=== PATIENT | female | born 1990 | race Caucasian/White ===

== ENCOUNTER 2018-08-31 10:28 | Inpatient (IN) | payer BC ==
[2018-08-31] MEDS ORDERED: CARBOPROST TROMETHAMINE 250 MCG/ML 1 ML AMP IM PRN (11:28)
[2018-08-31] MEDS ORDERED: OXYTOCIN 10 UNIT/ML 1 ML VIAL IM PRN (11:28)
[2018-08-31] MEDS ORDERED: LIDOCAINE 0.5% (PF) 5 MG/ML (50 ML SDV) SQ PRN (11:28)
[2018-08-31] MEDS ORDERED: TERBUTALINE 1 MG/ML VIAL SQ PRN (11:28)
[2018-08-31] MEDS ORDERED: METHYLERGONOVINE 0.2 MG/ML 1 ML AMP IM PRN (11:28)
[2018-08-31] MEDS ORDERED: BUTORPHANOL 1 MG/ML 1 ML VIAL IV PRN (11:30)
--- NOTE | 2018-08-31 11:35 | P.HPOB ---
History of Present Illness H&P Date: 08/31/18 Chief Complaint: 39-3/7 weeks, early labor The patient is a 27-year-old 3 para 1011 admitted at 39-3/7 weeks as established by last menstrual period and confirmed by 8 week ultrasound. She is admitted with documented cervical change and regular contractions. She was scheduled for induction of labor tomorrow for social circumstances. Her has been uncomplicated. She does carry a history of herpes for which she has been on prophylaxis with no lesions apparent. She also expressed the desire for tubal ligation which will likely take place at her 6 week visit unless section becomes necessary. Group B strep status is negative. On admission, all signs are reassuring. Obstetrical history: 3 para 1011 with 1 term vaginal delivery without complications and one early miscarriage not requiring D&C. Current statistics are listed in history present illness. EDC of 09/04/2018 was established by last menstrual period and confirmed by 8 week ultrasound. Laboratory workup demonstrates a blood type of A+ with a negative antibody screen. Rubella status is immune. The remainder of the laboratory workup was within normal limits. One hour Glucola was normal and group B strep status is negative. Gynecologic history: Unremarkable with no history of any infections to include STDs aside from the history of herpes for which she has been prophylaxed. There are no lesions at this time. Review of Systems Review of systems is confined to history of present illness. Past Medical History History of Any Multi-Drug Resistant Organisms: None Reported Smoking Status: Never smoker Medications and Allergies Home Medications Medication Instructions Recorded Confirmed Type Acyclovir 400 mg PO BID 08/31/18 08/31/18 History Pnv No.95/Ferrous Fum/Folic AC 1 each PO DAILY 08/31/18 08/31/18 History [ Multivitamin Tablet] Allergies Allergy/AdvReac Type Severity Reaction Status Date / Time No Known Allergies Allergy Verified 08/31/18 10:47 Exam Intake and Output 08/30/18 08/31/18 08/31/18 22:59 06:59 14:59 Other: Weight 86.183 kg In general, this is a well-developed well-nourished white female in no acute distress. Her heart has a regular rhythm and rate without murmur. Her lungs are clear to auscultation bilaterally in all suero. Her abdomen is gravid, nondistended, has normal active bowel sounds, soft, nontender, and without any palpable masses aside from uterine fundus. Her extremities are without any cyanosis, clubbing, or edema and are nontender to palpation bilaterally. Digital cervical examination on straights her cervix to be 3 cm dilated, 80% effaced, the vertex in presentation at -2 station. Artificial rupture of membranes is carried out demonstrating clear fluid. Assessment and Plan (1) Active labor at term Current Visit: Yes Status: Acute Code(s): MJD7298 - SNOMED Code(s): 78274816 Plan: The patient is admitted for active management of labor. Should there be no symptoms concerning post form remover the next 1-2 hours, Pitocin augmentation will be added. She will have close maternal and surveillance and expectant management will be practiced. She is a good candidate for either IV or epidural analgesia, whichever she may choose.
[2018-08-31 11:44] VITALS: BMI 33.6
[2018-08-31 12:07] LABS: Basophils % (A) 0 %; Eosinophils # (A) 0.1 k/uL (0-0.7); Eosinophils % (A) 1 %; HCT 39.6 % (34.0-46.0); HGB 13.3 gm/dL (11.4-16.0); Lymphocytes # (A) 1.6 k/uL (1.0-4.8); Lymphocytes % (A) 16 %; MCH 31.1 pg (25.0-35.0); MCHC 33.7 g/dL (31.0-37.0); MCV 92.4 fL (80.0-100.0); Mean Platelet Volume 6.8; Monocytes # (A) 0.5 k/uL (0-1.0); Monocytes % (A) 5 %; Neutrophils # (A) 7.8 k/uL (1.3-7.7); Neutrophils % (A) 77 %; Platelet Count 276 k/uL (150-450); RBC 4.29 m/uL (3.80-5.40); RDW 13.2 % (11.5-15.5); WBC 10.2 k/uL (3.8-10.6)
[2018-08-31] MEDS: LACTATED RINGERS 1,000 ML IV SCH ×2 (12:50→14:01)
[2018-08-31] MEDS ORDERED: OXYTOCIN 30 UNITS/500 ML NS 30 UNIT in SALINE 1 500ML.BAG IV SCH (13:00)
[2018-08-31] MEDS ORDERED: fentaNYL (PF) 50 MCG/ML 5 ML AMP ONE (14:12)
[2018-08-31] MEDS ORDERED: ROPIVACAINE 5MG/ML 20ML VIAL ONE (14:12)
[2018-08-31] MEDS ORDERED: SODIUM CHLORIDE 0.9% 100 ML BAG ONE (14:12)
[2018-08-31] MEDS: OXYTOCIN 20 UNITS/1000 ML NS 1,000 ML IV SCH ×2 (17:22→18:52)
[2018-08-31] MEDS ORDERED: LANOLIN CREAM 5 GM TUBE TOPICAL PRN (17:34)
[2018-08-31] MEDS ORDERED: WITCH HAZEL 1 EACH MED..PAD TOPICAL PRN (17:34)
[2018-08-31] MEDS ORDERED: diphenhydrAMINE 25 MG CAP PO PRN (17:34)
[2018-08-31] MEDS ORDERED: HYDROCORTISONE 2.5% RECTAL CREAM 30 GM TUBE RECTAL PRN (17:34)
[2018-08-31] MEDS ORDERED: ZOLPIDEM 5 MG TAB PO PRN (17:34)
[2018-08-31] MEDS ORDERED: diphenhydrAMINE 50 MG CAP PO PRN (17:34)
[2018-08-31] MEDS ORDERED: diphenhydrAMINE 50 MG/ML 1 ML VIAL IVP PRN ×2 (17:34)
[2018-08-31] MEDS ORDERED: BENZOCAINE/MENTHOL SPRAY 1 GM/SPRAY AEROSOL TOPICAL PRN (17:34)
[2018-08-31] MEDS ORDERED: ACETAMINOPHEN TAB 325 MG TAB PO PRN (17:34)
[2018-08-31] MEDS ORDERED: HYDROcodone/APAP 7.5-325MG 1 EACH TAB PO PRN (17:34)
[2018-08-31] MEDS ORDERED: IBUPROFEN 600 MG TAB PO PRN (17:34)
[2018-08-31] MEDS ORDERED: SIMETHICONE 80 MG CHEWABLE PO PRN (17:34)
[2018-08-31] MEDS ORDERED: HYDROcodone/APAP 5-325MG 1 EACH TAB PO PRN (17:34)
--- NOTE | 2018-08-31 17:37 | P.PROBDLV ---
Vaginal Delivery Note - . Vaginal Delivery Note: The patient is a 27-year-old 3 para 1011 admitted at 39-3/7 weeks by good dating parameters perches admitted in early labor with all signs reassuring. She had been scheduled for elective induction tomorrow morning but presented in labor as noted above. On labor and delivery, she had artificial rupture of membranes carried out demonstrating clear fluid. She had an epidural catheter placed for analgesia and ultimately had Pitocin augmentation started as well. She then made fairly rapid progress through the active phase of labor to complete after which time she labored down for a period of time she had little sensation from her epidural which was turned down as well. She then ultimately pushed over the course of approximately 20 minutes to a normal spontaneous vaginal delivery of a viable 8 lbs. 1 oz. baby girl with Apgars of 8 at 1 minute and 9 at 5 minutes delivered in the right occiput anterior position. The placenta was delivered spontaneously, intact, and grossly normal although there was some organized clot adherent to the margin of the placenta as well as one cotyledon suggesting the possibility of a marginal placental abruption. There was a grossly normal three-vessel cord inserted approximate 4 cm from the margin of the placental disc. There were no lacerations of the perineum, vagina, or cervix. Estimated blood loss for the case was approximately 200 mL. There were no complications. All sponge, instrument, and needle counts were correct. Both mother and are resting comfortably in recovery.
[2018-08-31] MEDS: SENNOSIDES-DOCUSATE SODIUM 1 EACH TAB PO SCH (22:04)
[2018-09-01] MEDS: SENNOSIDES-DOCUSATE SODIUM 1 EACH TAB PO SCH (08:03)
[2018-09-01 08:51] VITALS: RESP 18
--- NOTE | 2018-09-01 09:56 | P.DS ---
Providers Date of admission: 08/31/18 10:59 Expected date of discharge: 09/01/18 Attending physician: Yousuf Huang Primary care physician: Stated None - Discharge Diagnosis(es) (1) Active labor at term Current Visit: Yes Status: Acute (2) Normal spontaneous vaginal delivery Current Visit: Yes Status: Acute Hospital Course: The patient is a 27-year-old 3 para 1011 admitted at 39-3/7 weeks by good dating parameters. She is admitted in early labor with all signs reassuring. Her was uncomplicated and group B strep status was negative. On labor and delivery, she had artificial rupture of membranes carried out for clear fluid. She had an epidural catheter placed for analgesia. Ultimately, she did require Pitocin augmentation progressed rapidly after that to complete. She pushed to a normal spontaneous vaginal delivery of a viable 8 lbs. 1 oz. baby girl with Apgars of 8 at 1 minute and 9 at 5 minutes. Her course was unremarkable with vital signs remained stable and her temperature was afebrile throughout. She was deemed stable for discharge on day #1 was discharged home to follow-up in the office in 6 weeks' time routinely. Discharge instructions included calling for any significantly increased bleeding or foul-smelling lochia, significantly increased fever abdominal pain, perineal complaints, breast complaints, or anything else that concerned her. She was additionally instructed to have nothing in the vagina for at least 6 weeks time to include intercourse. She understood her instructions and agrees to follow up as noted above. Discharge medications included continued vitamins as she has opted to breast-feed as well as [id number] analgesic pain medications as needed. Maternal blood type is A+ and rubella status is immune. Procedures: #1. Artificial rupture of membranes #2. Epidural analgesia #3. Pitocin augmentation #4. Normal spontaneous vaginal delivery Patient Condition at Discharge: Good Plan - Discharge Summary New Discharge Prescriptions: No Action Acyclovir 400 mg PO BID Pnv No.95/Ferrous Fum/Folic AC [ Multivitamin Tablet] 1 each PO DAILY Discharge Medication List Acyclovir 400 mg PO BID 08/31/18 [History] Pnv No.95/Ferrous Fum/Folic AC [ Multivitamin Tablet] 1 each PO DAILY 08/31/18 [History] Follow up Appointment(s)/Referral(s): Yousuf Huang MD [STAFF PHYSICIAN] - 6 Weeks Discharge Disposition: HOME SELF-CARE
[2018-09-01 18:04] VITALS: BP 121/73; PULSE 78; TEMP 98.3
== END 2018-09-01 18:00 | disposition home or self-care (01) | DRG 807 ==
LOC: FBPOP 10:28 → 4FBP 10:59
PROVIDERS: ADMIT Obstetrics & Gynecology; ATTEND Obstetrics & Gynecology
PROC: 10E0XZZ Delivery of Products of Conception, External Approach (ICD-10-PCS; principal; 2018-08-31)
PROC: 00HU33Z Insertion of Infusion Device into Spinal Canal, Percutaneous Approach (ICD-10-PCS; 2018-08-31)
PROC: 3E0R3BZ Introduction of Anesthetic Agent into Spinal Canal, Percutaneous Approach (ICD-10-PCS; 2018-08-31)
DX: O99.834 Other infection carrier state complicating childbirth (principal); Z37.0 Single live birth; Z3A.39 39 weeks gestation of pregnancy; Z79.899 Other long term (current) drug therapy
CPT/HCPCS: 59025; 84112; 85025; 86850; 86900; 86901; 99213

== ENCOUNTER → 2019-05-31 | Outpatient (CLI) | payer BC ==
[2019-05-31 11:24] LABS: Basophils # (A) 0.1 k/uL (0-0.2); Basophils % (A) 2 %; Eosinophils # (A) 0.1 k/uL (0-0.7); Eosinophils % (A) 2 %; HCT 38.9 % (34.0-46.0); HGB 12.8 gm/dL (11.4-16.0); Lymphocytes # (A) 1.9 k/uL (1.0-4.8); Lymphocytes % (A) 39 %; MCH 29.8 pg (25.0-35.0); MCHC 32.9 g/dL (31.0-37.0); MCV 90.7 fL (80.0-100.0); Mean Platelet Volume 7.3; Monocytes # (A) 0.3 k/uL (0-1.0); Monocytes % (A) 6 %; Neutrophils # (A) 2.3 k/uL (1.3-7.7); Neutrophils % (A) 48 %; Platelet Count 225 k/uL (150-450); RBC 4.29 m/uL (3.80-5.40); RDW 12.4 % (11.5-15.5); WBC 4.8 k/uL (3.8-10.6)
== END | disposition home or self-care (01) ==
LOC: LABPAT 09:14
PROVIDERS: ATTEND Obstetrics & Gynecology
DX: Z01.812 Encounter for preprocedural laboratory examination (principal)
CPT/HCPCS: 36415; 85025

== ENCOUNTER 2019-06-01 09:56 | Day surgery (SDC) | payer BC ==
[2019-05-28 13:39] VITALS: BMI 26.5
[~2019-06-01 09:56] MED LIST: DEXAMETHASONE SOD PHOSPHATE 10 MG/ML 1 ML VIAL IV ONE; LACTATED RINGERS 1,000 ML IV SCH; LIDOCAINE 1% 20 ML VIAL (10MG/ML) FOR IV START INTRADERMA PRN; ONDANSETRON 4 MG/2 ML VIAL IVP ONE; Pre Op ABX Message 1 EACH MISC MISCELLANE ONE; SCOPOLAMINE 1.5MG/72HR PATCH TRANSDERM ONE
[2019-06-01] MEDS ORDERED: fentaNYL (PF) 50 MCG/ML 2 ML AMP ONE (11:20)
[2019-06-01] MEDS ORDERED: ROCURONIUM BROMIDE 10 MG/ML 5 ML VIAL IV ONE (11:20)
[2019-06-01] MEDS ORDERED: NEOSTIGMINE 1 MG/ML 10 ML VIAL ONE (11:20)
[2019-06-01] MEDS ORDERED: KETOROLAC 30 MG/ML 1 ML VIAL ONE (11:20)
[2019-06-01] MEDS ORDERED: LIDOCAINE 1% INJ 10MG/ML (20 ML MDV) ONE (11:20)
[2019-06-01] MEDS ORDERED: GLYCOPYRROLATE 0.2 MG/ML 2 ML VIAL ONE (11:20)
[2019-06-01] MEDS ORDERED: MIDAZOLAM 2 MG/2 ML VIAL ONE (11:20)
[2019-06-01] MEDS ORDERED: PROPOFOL 10 MG/ML 20 ML VIAL IV ONE (11:20)
[2019-06-01] MEDS ORDERED: KETOROLAC 30 MG/ML 1 ML VIAL IVP PRN (11:33)
[2019-06-01] MEDS ORDERED: ONDANSETRON 4 MG/2 ML VIAL IVP PRN (11:33)
[2019-06-01] MEDS ORDERED: Acetaminophen-Codeine 300-30mg TAB PO PRN ×2 (11:33)
[2019-06-01] MEDS ORDERED: diphenhydrAMINE 50 MG/ML 1 ML VIAL IVP PRN (11:33)
[2019-06-01] MEDS ORDERED: IBUPROFEN 600 MG TAB PO PRN (11:33)
[2019-06-01] MEDS ORDERED: METOCLOPRAMIDE 5 MG/ML 2 ML VIAL IVP PRN (11:33)
[2019-06-01] MEDS ORDERED: SIMETHICONE 80 MG CHEWABLE PO PRN (11:33)
[2019-06-01] MEDS ORDERED: LACTATED RINGERS 1,000 ML IV SCH (11:45)
[2019-06-01] MEDS ORDERED: BUPIVACAINE (PF) 0.5% 30 ML VIAL SQ ONE (11:56)
--- NOTE | 2019-06-01 12:06 | P.OP ---
Date of Procedure: 06/01/19 Preoperative Diagnosis: #1. Multiparity #2. Undesired fertility Postoperative Diagnosis: Same Procedure(s) Performed: #1. Laparoscopic bilateral tubal occlusion with Filshie clips Anesthesia: TERRANCE Surgeon: Yousuf Huang Estimated Blood Loss (ml): 2 IV fluids (ml): 600 Urine output (ml): 50 Pathology: none sent Condition: stable Disposition: PACU Operative Findings: After pelvic examination demonstrated a 4-5 week anteverted mobile normal shaped uterus with normal adnexa bilaterally. Intraoperatively, the findings were confirmed with a normal uterus, bilateral tubes, and bilateral ovaries. There was one small point of probable endometriosis in the left ovarian fossa. Otherwise there was no evidence of any pathology throughout the pelvis. The appendix was noted to be normal though it was very long. The liver, gal lbladder, diaphragm were entirely normal to inspection as were the large and small intestine that were seen. Description of Procedure: The patient was prepped and draped in usual fashion after general endotracheal anesthesia was administered by the anesthesiologist. Speculum was placed and the anterior lip the cervix was grasped with a single-tooth tenaculum allowing placement of an acorn cannula for manipulation. The bladder was draining approximately 50 mL of clear daxa urine. Attention was turned to the abdomen where a 5 mm incision was made in a vertical fold of the umbilicus allowing insertion of a 5 mm optical trocar under direct vision station without difficulty. A pneumoperitoneum was established and Trendelenburg position utilized. A site was selected approximately 5 cm above the pubic symphysis in the midline where a roughly 8 mm incision was made in the transverse plane allowing insertion of an 8 mm optical trocar under direct vision station without difficulty. The blunt probe was utilized to sweep the bowel from the pelvis and the findings are as noted above. The probe was replaced with the Filshie clip applicator which was utilized to place a Filshie clip across the isthmic portion of the left fallopian tube approximately 2-3 cm from the cornea where was firmly affixed. A similar operation was carried out on the right without difficulty. Expiration of the pelvis demonstrated the findings as noted above. Again there was a small point of endometriosis noted in the left ovarian fossa with no other evidence of pathology. The remainder of the examination the upper abdomen was normal as above. The instrument H was then removed after evacuating the entire pneumoperitoneum through the 2 trocar sites. The incisions were closed with interrupted subcuticular stitches of 4-0 Vicryl followed by half-inch Steri- Strips with Mastisol. Estimated blood loss for the entire case was approximately 2 mL. There are no complications. The 2 incisions were infused with a total of 10 mL of Percent Marcaine without epinephrine equally divided between the 2 incision sites. The patient tolerated the procedure well and proceeded to the recovery room in stable condition.
[2019-06-01 12:18] VITALS: TEMP 97.8
[2019-06-01] MEDS: HYDROmorphone 0.5 MG/0.5 ML SYRINGE IVP PRN ×2 (12:20→12:25)
[2019-06-01] MEDS ORDERED: LACTATED RINGERS 1,000 ML IV ONE ×2 (12:20)
[2019-06-01 12:27] VITALS: RESP 16
[2019-06-01] MEDS ORDERED: Acetaminophen-Codeine 300-30mg TAB PO ONE (13:05)
[2019-06-01 14:13] VITALS: BP 107/69; PULSE 67
== END 2019-06-01 14:40 | disposition home or self-care (01) ==
LOC: OR 09:56
PROVIDERS: ATTEND Obstetrics & Gynecology
DX: Z30.2 Encounter for sterilization (principal); N80.1 Endometriosis of ovary; Z64.1 Problems related to multiparity; Z88.0 Allergy status to penicillin; Z82.49 Family history of ischemic heart disease and other diseases of the circulatory system; Z83.511 Family history of glaucoma; Z83.2 Family history of diseases of the blood and blood-forming organs and certain disorders involving the immune mechanism
CPT/HCPCS: 81025; 58671; J2250; J1100; J2710; J2405; J2001; J3010; J1885; J2704; J1170